=== PATIENT | female | born 1995 | race Caucasian/White ===

== ENCOUNTER 2020-09-05 10:22 | Emergency (ER) | payer SELFPAY ==
[2020-09-05] MEDS ORDERED: TYLENOL325 MG PO (13:32)
== END 2020-09-05 13:55 | disposition home or self-care (01) ==
LOC: ER1 10:22
DX: O9A.312 Physical abuse complicating pregnancy, second trimester (principal); S01.01XA Laceration without foreign body of scalp, initial encounter; Z3A.15 15 weeks gestation of pregnancy; Y04.2XXA Assault by strike against or bumped into by another person, initial encounter; Y92.009 Unspecified place in unspecified non-institutional (private) residence as the place of occurrence of the external cause
CPT/HCPCS: 72072; 76815; 81001; 99284